=== PATIENT | male | born 1940 | race Caucasian/White ===

== ENCOUNTER 2024-10-17 05:04 | Emergency (ER) | payer OTHER ==
[2024-10-17 05:14] VITALS: BMI 21.7
[2024-10-17] MEDS ORDERED: ACETAMINOPHEN 325 MG TABLET (FP) ONE (06:12)
[2024-10-17] MEDS ORDERED: LIDOCAINE 5% TOPICAL PATCH ONE (06:12)
[2024-10-17] MEDS: LIDOCAINE 5% TOPICAL PATCH TP ONE (06:28)
[2024-10-17 06:29] LABS: ABSOLUTE IMMATURE GRANULOCYTES 0.02 x10^3/uL (0.0-0.031); BASOPHILS # 0.02 x10^3/uL (0.01-0.08); EOSINOPHIL % 6.2 % (0.8-7.0); EOSINOPHILS # 0.53 x10^3/uL (0.04-0.54); HEMATOCRIT 42.7 % (40.1-51.0); HEMOGLOBIN 13.9 g/dL (13.7-17.5); MCHC 32.6 g/dl (32.3-36.5); MEAN CELL VOLUME 87.7 fl (79.0-92.2); MEAN PLT VOLUME 8.5 fl (9.4-12.4); MONOCYTE # 0.62 x10^3/uL (0.30-0.82); MONOCYTE % 7.2 % (5.3-12.2); PLATELET COUNT 317 x10^3/uL (163-337); RDW 12.6 % (12.6-16.6)
[2024-10-17] MEDS: ACETAMINOPHEN 500 MG TABLET (FP) PO ONE (06:29)
[2024-10-17 07:37] LABS: POTASSIUM 4.4 mmol/L (3.5-5.1)
[2024-10-17 07:40] LABS: ALBUMIN 3.5 g/dl (3.4-5.0); BLOOD UREA NITROGEN 12.7 mg/dL (7-18); CALCIUM 9.8 mg/dL (8.5-10.1)
[2024-10-17 07:45] LABS: TOT PROT 9.3 g/dl (6.4-8.2)
[2024-10-17 07:57] LABS: BILIRUBIN,TOTAL 0.4 mg/dL (0.2-1)
[2024-10-17 08:14] LABS: EPI CELLS 4 /uL (0-25.1); HYALINE CASTS 0 /uL (0-3.1); PH,URINE 6.5 (5.0-8.0); URINE APPEARANCE CLEAR; URINE BACTERIA 11 /uL (0-1359); URINE BILIRUBIN NEGATIVE (NEGATIVE); URINE COLOR YELLOW; URINE GLUCOSE (UA) NEGATIVE (NEGATIVE); URINE KETONE NEGATIVE (NEGATIVE); URINE LEUK ESTERASE NEGATIVE (NEGATIVE); URINE NITRITE NEGATIVE (NEGATIVE); URINE PROTEIN 2+ (NEGATIVE); URINE RBC 30 /uL (0-23.9); URINE UROBILINOGEN 0.2 mg/dL (0.2-1.0); URINE WBC 4 /uL (0-25.8)
[2024-10-17 10:40] VITALS: RESP 20; TEMP 97.3
[2024-10-17] MEDS ORDERED: LISINOPRIL 20 MG TABLET ONE (10:52)
[2024-10-17] MEDS ORDERED: HYDROCHLOROTHIAZIDE 25 MG TABLET (FP) ONE (10:52)
[2024-10-17] MEDS ORDERED: amLODIPine BESYLATE 10 MG TABLET (FP) ONE (10:53)
[2024-10-17] MEDS: LISINOPRIL 20 MG TABLET PO ONE (10:59)
[2024-10-17] MEDS: amLODIPine BESYLATE 10 MG TABLET (FP) PO ONE (10:59)
[2024-10-17] MEDS: HYDROCHLOROTHIAZIDE 12.5 MG CAPSULE (FP) PO ONE (10:59)
[2024-10-17 12:47] VITALS: BP 181/98; PULSE 83
[2024-10-17] MEDS ORDERED: LIDOCAINE PATCH REMOVAL MC SCH (22:00)
== END 2024-10-17 13:15 | disposition home or self-care (01) ==
LOC: JER 05:04
DX: R07.81 Pleurodynia (principal); K86.89 Other specified diseases of pancreas; R22.2 Localized swelling, mass and lump, trunk; I10 Essential (primary) hypertension
CPT/HCPCS: 36415; 71046-TC-FY; 71275-TC; 74174-TC; 80053; 81003; 83690; 84484; 85025; 86850; 86900; 86901; 87086; 93005; 93010; 99285-25; Q9967